=== PATIENT | male | born 1960 | race Caucasian/White ===

== ENCOUNTER 2016-11-12 09:35 | Emergency (ER) | payer OTHER ==
[~2016-11-12] VITALS: Ht 170.2 cm; Wt 62.6 kg
[~2016-11-12 09:35] MED LIST: INDOCIN50 MG PO; LIDODERM 5% P1 PATCH TD; NAPROSYN500 MG PO; PREDNISONE20 MG PO; TRAMADOL HCL50 MG PO; VALIUM5 MG PO
[2016-11-12 11:53] VITALS: BP 114/73
== END 2016-11-12 11:53 | disposition home or self-care (01) ==
LOC: EME 09:35
DX: T15.02XA Foreign body in cornea, left eye, initial encounter (principal); X58.XXXA Exposure to other specified factors, initial encounter; F17.200 Nicotine dependence, unspecified, uncomplicated
CPT/HCPCS: 99281; 99283

== ENCOUNTER → 2017-02-22 | Outpatient (CLI) | payer OTHER | END | disposition home or self-care (01) | LOC: RES 07:32 | DX: R06.09 Other forms of dyspnea (principal); F17.210 Nicotine dependence, cigarettes, uncomplicated | CPT/HCPCS: 94060; 94726; 94729 ==

== ENCOUNTER 2017-07-13 08:48 | Day surgery (SDC) | payer OTHER ==
[~2017-07-13] VITALS: Ht 170.2 cm; Wt 68.5 kg
[~2017-07-13 08:48] MED LIST changes: +FLEXERIL10 MG PO; +MOBIC7.5 MG PO; +NEURONTIN300 MG PO
== END 2017-07-13 10:10 | disposition home or self-care (01) ==
LOC: PAIN 08:48 → SDC 09:15 → PAIN 10:10
DX: M47.26 Other spondylosis with radiculopathy, lumbar region (principal); M48.061 Spinal stenosis, lumbar region without neurogenic claudication; M51.36 Other intervertebral disc degeneration, lumbar region; M51.26 Other intervertebral disc displacement, lumbar region; G89.29 Other chronic pain; F17.200 Nicotine dependence, unspecified, uncomplicated
CPT/HCPCS: J1030; J2250; J3010; S0020

== ENCOUNTER 2017-08-03 08:50 | Day surgery (SDC) | payer OTHER ==
[~2017-08-03] VITALS: Ht 170.2 cm; Wt 68.5 kg
== END 2017-08-03 10:45 | disposition home or self-care (01) ==
LOC: PAIN 08:50 → SDC 09:15 → PAIN 09:15
DX: M47.816 Spondylosis without myelopathy or radiculopathy, lumbar region (principal); F17.200 Nicotine dependence, unspecified, uncomplicated; M48.061 Spinal stenosis, lumbar region without neurogenic claudication; M51.36 Other intervertebral disc degeneration, lumbar region; M19.90 Unspecified osteoarthritis, unspecified site
CPT/HCPCS: 93005; J1030; J2250; J3010; S0020

== ENCOUNTER 2017-09-14 07:38 | Day surgery (SDC) | payer OTHER ==
[~2017-09-14] VITALS: Ht 170.2 cm; Wt 67.1 kg
== END 2017-09-14 09:00 | disposition home or self-care (01) ==
LOC: PAIN 07:38 → SDC 08:00 → PAIN 08:00
DX: M47.816 Spondylosis without myelopathy or radiculopathy, lumbar region (principal); M51.06 Intervertebral disc disorders with myelopathy, lumbar region; M48.061 Spinal stenosis, lumbar region without neurogenic claudication; G89.29 Other chronic pain; I44.0 Atrioventricular block, first degree; I44.7 Left bundle-branch block, unspecified; F17.200 Nicotine dependence, unspecified, uncomplicated
CPT/HCPCS: J1030; J2250; S0020

== ENCOUNTER 2018-02-02 15:19 | Emergency (ER) | payer OTHER ==
[~2018-02-02] VITALS: Ht 170.2 cm; Wt 61.6 kg
[2018-02-02 16:34] VITALS: BP 149/75
== END 2018-02-02 16:20 | disposition home or self-care (01) ==
LOC: EME 15:19
PROC: 0HQGXZZ Repair Left Hand Skin, External Approach (ICD-10-PCS; principal; 2018-02-02)
DX: S61.213A Laceration without foreign body of left middle finger without damage to nail, initial encounter (principal); S61.315A Laceration without foreign body of left ring finger with damage to nail, initial encounter; W29.3XXA Contact with powered garden and outdoor hand tools and machinery, initial encounter; Y93.H2 Activity, gardening and landscaping; Y99.0 Civilian activity done for income or pay; F17.200 Nicotine dependence, unspecified, uncomplicated; Z71.6 Tobacco abuse counseling
CPT/HCPCS: 99281; 99284

== ENCOUNTER 2018-02-11 09:41 | Emergency (ER) | payer OTHER ==
[~2018-02-11] VITALS: Ht 170.2 cm; Wt 61.5 kg
[2018-02-11 10:06] VITALS: BP 112/69
== END 2018-02-11 11:20 | disposition left against medical advice (07) ==
LOC: EME 09:41
DX: S61.219D Laceration without foreign body of unspecified finger without damage to nail, subsequent encounter (principal); Z48.02 Encounter for removal of sutures; W45.8XXD Other foreign body or object entering through skin, subsequent encounter; Z53.21 Procedure and treatment not carried out due to patient leaving prior to being seen by health care provider

== ENCOUNTER 2018-02-24 08:03 | Day surgery (SDC) | payer OTHER ==
[~2018-02-24] VITALS: Ht 170.2 cm; Wt 67.1 kg
== END 2018-02-24 10:25 | disposition home or self-care (01) ==
LOC: PAIN 08:03
PROC: 3E0R3BZ Introduction of Anesthetic Agent into Spinal Canal, Percutaneous Approach (ICD-10-PCS; principal; 2018-02-24)
PROC: 3E0R33Z Introduction of Anti-inflammatory into Spinal Canal, Percutaneous Approach (ICD-10-PCS; principal; 2018-02-24)
DX: M51.16 Intervertebral disc disorders with radiculopathy, lumbar region (principal); M47.26 Other spondylosis with radiculopathy, lumbar region; I44.0 Atrioventricular block, first degree; F17.200 Nicotine dependence, unspecified, uncomplicated
CPT/HCPCS: J1100; J2250; J3010